=== PATIENT | male | born 1995 | race Caucasian/White ===

== ENCOUNTER 2016-09-07 23:29 | Emergency (ER) | payer BC ==
[2016-09-07 23:34] VITALS: BP 140/81; PULSE 94; RESP 18; TEMP 97.7; O2SAT 96
[2016-09-07] MEDS ORDERED: diphenhydrAMINE 25 MG CAP PO ONE (23:59)
--- NOTE | 2016-09-07 23:59 | EDPHY ---
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 Patient is taking minocycline for chronic skin condition for the last month. He has been out in the sun a doing some environmental work associated with his education. Denies any rash on his trunk or back. None his face. No fevers or chills. It is itchy. ROS: 10 point Review of Systems is negative except as noted in the HPI. PMH: Chronic skin condition Medications: Minocycline Allergies: No known drug allergies Social History: No smoking, no alcohol, no recreational drug use Family History: non-contributory Physical Exam: Gen: Awake, Alert, No Distress HEENT: Nose: no rhinorrhea Eyes: PERRLA, EOMI Mouth: Moist mucosa Neck: Supple, no JVD Chest: nontender, lungs clear to auscultation Heart: S1, S2 normal, no murmur Abd: Soft, non-tender, no guarding Back: no CVA tenderness, no midline tenderness Ext: no edema, non-tender Skin: He has an erythematous macular rash in his bilateral upper extremities primarily in the dorsum of his hands and arms which ends at his elbows. Is also present although to a lesser degree in his lower extremities below the knee. Not on his face or trunk. It is symmetrical and primarily in sun- exposed areas. Neuro: CN II-XII intact, Sensation grossly intact, Strength 5/5 in bilateral upper and lower extremities - Personal History Current Tetanus/Diphtheria Vaccine: Yes Current Tetanus Diphtheria and Acellular Pertussis (TDAP): Yes - Medical/Surgical History Hx Asthma: No Hx Chronic Respiratory Disease: No Hx Diabetes: No Hx Cardiac Disease: No Hx Renal Disease: No Hx Cirrhosis: No Hx Alcoholism: No Hx HIV/AIDS: No Hx Splenectomy or Spleen Trauma: No Other PMH: RETICULATED PAPILLOMATOSIS - Social History Smoking Status: Never smoked Constitutional: Initial Vital Signs Temperature (C) 36.5 C 09/07/16 23:30 Heart Rate 94 09/07/16 23:30 Respiratory Rate 18 09/07/16 23:30 Blood Pressure 140/81 H 09/07/16 23:30 O2 Sat (%) 96 09/07/16 23:30 O2 Delivery Mode Room Air Allergies/Adverse Reactions: No Known Allergies Allergy (Unverified 09/07/16 23:34) Home Medications: Medication Instructions Recorded MINOCYCLINE HCL 75 mg PO 09/07/16 Medical Decision Making ED Course/Re-evaluation: Patient presenting with a rash in sun-exposed areas. He is currently taking minocycline I think that this is related to photosensitivity from that medication. There are no findings suggestive of acute infection at this time. I have recommend he take some Benadryl for the itching. He should avoid sun exposure and follow up with his doctor when he returns home to [place] next week. Departure - Departure Disposition: Home, Routine, Self-Care Clinical Impression: Rash Condition: Good Instructions: Acute Rash (ED) Additional Instructions: You may take Benadryl [id number] for itching. Follow up with your doctor when she returns home to [place] next week.
== END 2016-09-08 00:23 | disposition home or self-care (01) ==
DX: R21 Rash and other nonspecific skin eruption (principal)